=== PATIENT | male | born 1965 | race Hispanic/Latino ===

== ENCOUNTER → 2019-10-28 | Day surgery (SDC) | payer OTHER ==
[~2019-10-28] MED LIST: BUPIVACAINE HCL 0.5% INJ 30 ML VIAL INJ ONE; CEFAZOLIN SOD 1 GM/NS 50ML 50 ML IV ONE; DEXAMETHASONE SOD PHOS INJ 4 MG/ML VIAL ONE; FENTANYL CITRATE/PF 100MCG/2 ML INJ ONE; KETOROLAC TROMETHAMINE 30 MG/ML VIAL ONE; LIDOCAINE HCL 2% LOCAL INJ 5 ML SDV VIAL INJ ONE; MIDAZOLAM HCL 2 MG/2 ML VIAL ONE; ONDANSETRON HCL INJ 2MG/ML 2ML 2 MG/ML VIAL ONE; PROPOFOL IV EMULSION 10 MG/ML 20 ML VIAL ONE; SEVOFLURANE INHAL SOLN 250 ML PEN BTL ONE; TIZANIDINE HCL4 MG PO
[2019-10-28 08:30] VITALS: BP 114/70
--- NOTE | 2019-10-28 14:16 | Operative Report ---
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 OPERATIVE PROCEDURES: Excision of neuroma, 2nd interspace, right and excision of neuroma, 3rd interspace, right. DESCRIPTION OF PROCEDURE: The patient was placed on the OR table in the supine position. The right lower extremity was prepped and draped in the usual manner. A general anesthetic was administered and hemostasis accomplished using a pneumatic cuff set at 350 mmHg. Procedure #1: Excision of neuroma, 2nd interspace. An incision approximately 3 cm long was made between the 2nd and 3rd metatarsal head. The incision was deepened. Blood vessels were either ligated or retracted. The hypertrophied nerve was identified and isolated. Both distal branches were located and resected. The intermetatarsal ligament between the 2nd and 3rd metatarsal was released. This exposed the neuroma, which was removed in total. The incision was then flushed with sterile saline solution. Subcutaneous tissue closed with 3-0 Vicryl and the skin with 4-0 nylon. Procedure #2: Excision of neuroma, 3rd interspace. An incision approximately 3 cm long was made between the 2nd and 3rd metatarsal head. The incision was deepened. Blood vessels were either ligated or retracted. The hypertrophied nerve was identified and isolated. Both distal branches were located and resected. The intermetatarsal ligament between the 2nd and 3rd metatarsal was released. This exposed the neuroma, which was removed in total. The incision was then flushed with sterile saline solution. Subcutaneous tissue closed with 3-0 Vicryl and the skin with 4-0 nylon. Following the procedure, 9 mL of 0.5 Marcaine and 1 mL of Decadron were injected. A sterile compression dressing was then applied. At this time, the pneumatic cuff was released and a reflex hyperemia was observed to all digits. The patient tolerated the procedures and anesthesia well and left the OR to recovery in good condition with vital signs stable. Kael Louis DPM ([place]) /MODL /[id number]
== END | disposition home or self-care (01) ==
LOC: OR 05:09
PROVIDERS: ATTEND Podiatrist Foot & Ankle Surgery
DX: G57.61 Lesion of plantar nerve, right lower limb (principal); G47.33 Obstructive sleep apnea (adult) (pediatric); E66.9 Obesity, unspecified; E78.5 Hyperlipidemia, unspecified; K21.9 Gastro-esophageal reflux disease without esophagitis; Z01.810 Encounter for preprocedural cardiovascular examination
CPT/HCPCS: 28080 ×2; 93005; J0690; J1100; J1885; J2001; J2250; J2405; J2704; J3010